=== PATIENT | male | born 1975 | race Caucasian/White ===

== ENCOUNTER 2018-05-03 10:48 | Emergency (ER) | payer OTHER ==
[~2018-05-03] VITALS: Ht 190.5 cm; Wt 89.8 kg
[2018-05-03] MEDS ORDERED: FAMCYCLOVIR 50500 M1 PO (11:34)
[2018-05-03] MEDS ORDERED: NEURONTIN 300300 M1 PO (11:34)
[2018-05-03] MEDS ORDERED: NORCO 5-325 TA1 EACH PO (11:34)
[2018-05-03 11:45] VITALS: BP 148/100
== END 2018-05-03 11:45 | disposition home or self-care (01) ==
LOC: M.ERS 10:48
DX: B02.9 Zoster without complications (principal)